=== PATIENT | female | born 1985 | race Two or more races ===

== ENCOUNTER 2022-04-21 06:04 | Day surgery (SDC) | payer MEDICAID ==
[2022-04-18 11:56] LABS: INR 0.94 (0.9-1.15); Partial Thromboplastin Time 28.7 sec (24.6-33.4)
[2022-04-18 11:57] LABS: Basophils # (auto) 0 10 ^3/uL (0-0.2); Basophils % (auto) 0.2 % (0.0-2.0); Eosinophils # (auto) 0.1 10 ^3/uL (0-0.8); Monocytes # (auto) 0.4 10 ^3/uL (0-1.3); Nucleated Red Blood Cells % 0.1 %
[2022-04-18 11:59] LABS: Eosinophils % (auto) 1.7 % (0.0-7.0); Hematocrit 38.6 % (36.0-46.0); Hemoglobin 12.7 g/dL (12.2-16.2); Lymphocytes # (auto) 1.9 10 ^3/uL (0.4-5.4); Lymphocytes % (auto) 29.6 % (10.0-50.0); Mean Corpuscular Hemoglobin 26.5 pg (28.0-32.0); Mean Corpuscular Volume 80.4 fL (80.0-100.0); Monocytes % (auto) 6.7 % (0.0-12.0); Neutrophils % (auto) 61.8 % (37.0-80.0); Red Cell Distribution Width 16.6 % (11.8-14.3); White Blood Cell 6.5 10^3/uL (4.4-10.8)
[2022-04-18 12:03] LABS: Albumin 3.4 g/dL (3.4-5.0); BUN/Creatinine Ratio 12.5; Calcium 8.8 mg/dL (8.5-10.1); Potassium 3.8 mmol/L (3.5-5.1)
[2022-04-18 12:19] LABS: Urine Bacteria NONE SEEN /hpf (None Seen); Urine Blood Negative /uL (Negative); Urine Mucus FEW (None Seen); Urine Specific Gravity 1.014 (1.001-1.035); Urine WBC 1 /hpf (0 - 5)
[2022-04-18 12:20] LABS: Bilirubin, Total 0.2 mg/dL (0.2-1.0); Total Protein 8.3 g/dL (6.4-8.2)
[~2022-04-21] VITALS: Ht 157.5 cm; Wt 108.9 kg
[2022-04-21] MEDS ORDERED: ceFAZolin 1GM/50ML 100 ML IV ONE (06:49)
[2022-04-21] MEDS ORDERED: LIDOCAINE W/ EPINEPHRINE 2% INJ 20ML VIAL ONE (07:19)
[2022-04-21] MEDS ORDERED: BUPIVACAINE 0.5% P/F INJ 10 ML VIAL ONE (07:19)
[2022-04-21] MEDS ORDERED: DexAMETHasone SOD PHOS 4 MG/1ML SDV INJ ONE (07:19)
[2022-04-21] MEDS ORDERED: DexAMETHasone SOD PHOS 10MG/1ML VIAL INJ ONE (07:20)
[2022-04-21] MEDS ORDERED: GLYCOPYRROLATE 0.2 MG/ML 1ML VIAL ONE (07:20)
[2022-04-21] MEDS ORDERED: KETOROLAC TROMETH 30 MG/ML 1ML VIAL ONE (07:20)
[2022-04-21] MEDS ORDERED: LIDOCAINE 1% (LOCAL ANESTH.) PF 5ml SDV ONE (07:20)
[2022-04-21] MEDS ORDERED: PROPOFOL 10 MG/ML 20 ML IV ONE (07:20)
[2022-04-21] MEDS ORDERED: ONDANSETRON HCL 4 MG/2 ML VIAL ONE ×2 (07:20→10:55)
[2022-04-21] MEDS ORDERED: MIDAZOLAM HCL 2MG/2ML 2ml VIAL (1mg/ml) ONE (07:22)
[2022-04-21] MEDS ORDERED: LIDOCAINE 2% JELLY 11ml (GLYDO) ONE (07:24)
[2022-04-21] MEDS ORDERED: KETAMINE 50mg/ML 10ml Vial (500mg/10ml) IV ONE (08:03)
[2022-04-21] MEDS ORDERED: PHENYLEPHRINE HCL 10 MG/ML VL IV ONE (08:03)
[2022-04-21] MEDS ORDERED: fentaNYL CITRATE 100 MCG/2 ML VL ONE (08:43)
[2022-04-21] MEDS ORDERED: ESMOLOL HCL 10 ML IV ONE (09:03)
[2022-04-21] MEDS ORDERED: HYDR-4902 PO (09:29)
[2022-04-21] MEDS ORDERED: AUG875T PO (09:29)
[2022-04-21] MEDS: HYDROmorphone HCL 2 MG/ML VL/or syr ONE ×2 (09:50→10:00)
[2022-04-21] MEDS: HYDROmorphone HCL 2 MG/ML VL/or syr IV PRN ×2 (10:10→10:20)
[2022-04-21 11:00] VITALS: BP 122/64
[2022-04-21] MEDS ORDERED: ONDANSETRON HCL 4 MG/2 ML VIAL IV PRN (11:00)
[2022-04-21] MEDS ORDERED: HYDROmorphone HCL 2 MG/ML VL/or syr IV PRN (11:00)
[2022-04-21] MEDS ORDERED: hydrALAZINE HCL 20 MG/ML VL IV PRN (11:00)
[2022-04-21] MEDS ORDERED: fentaNYL CITRATE 100 MCG/2 ML VL IV PRN (11:00)
[2022-04-21] MEDS ORDERED: LABETALOL HCL 5 MG/ML 4ML SYRINGE IV PRN (11:00)
[2022-04-21] MEDS ORDERED: NALOXONE HCL 0.4 MG/ML VIAL IV PRN (11:00)
[2022-04-21] MEDS ORDERED: FLUMAZENIL 0.1 MG/ML INJ 10ML MDV IV PRN (11:00)
[2022-04-21] MEDS ORDERED: ePHEDrine SULFATE 50 MG/ML AMP IV PRN (11:00)
== END 2022-04-21 11:20 | disposition home or self-care (01) ==
LOC: SUR 06:04
PROVIDERS: ATTEND Student in an Organized Health Care Education/Training Program
DX: M76.821 Posterior tibial tendinitis, right leg (principal); Z90.49 Acquired absence of other specified parts of digestive tract; Z98.890 Other specified postprocedural states; Z79.891 Long term (current) use of opiate analgesic; Z20.822 Contact with and (suspected) exposure to COVID-19
CPT/HCPCS: 28238; 36415; 73620; 73630; 76000; 80053; 81001; 84702; 85025; 85610; 85730; J0690; J1100; J1170; J1885; J2250; J2370; J2405; J2704; J3010; J3490; U0003